=== PATIENT | male | born 1980 | race Caucasian/White ===

== ENCOUNTER 2019-09-02 23:23 | Emergency (ER) | payer OTHER ==
[~2019-09-02] VITALS: Ht 175.3 cm; Wt 72.0 kg
[2019-09-02 23:24] VITALS: BP 165/114
[2019-09-02] MEDS ORDERED: bacitracin 15gm ointment TP ONE (23:50)
[2019-09-02] MEDS ORDERED: TETanus/Pertussis (Acell)/Diphther VAC/PF (Tdap-Adult) 0.5ml syringe IMVAC ONE (23:50)
[2019-09-02] MEDS ORDERED: LIDOcaine 1% W/epiNEPHrine 1:200,000 10ml vial IJ ONE (23:50)
== END 2019-09-03 01:16 ==
LOC: ER 23:23
DX: S01.112A Laceration without foreign body of left eyelid and periocular area, initial encounter (principal); S01.21XA Laceration without foreign body of nose, initial encounter; S01.412A Laceration without foreign body of left cheek and temporomandibular area, initial encounter; S02.2XXA Fracture of nasal bones, initial encounter for closed fracture; S09.90XA Unspecified injury of head, initial encounter; F10.129 Alcohol abuse with intoxication, unspecified; Y04.0XXA Assault by unarmed brawl or fight, initial encounter; Y93.89 Activity, other specified; Y92.89 Other specified places as the place of occurrence of the external cause; Y99.8 Other external cause status; Y90.9 Presence of alcohol in blood, level not specified
CPT/HCPCS: 12013; 70450; 70486; 90471; 90715; 99284

== ENCOUNTER 2025-01-10 17:40 | Emergency (ER) | payer MEDICAID ==
[~2025-01-10] VITALS: Ht 175.3 cm; Wt 79.8 kg
[2025-01-10] MEDS: magnesium oxide 400mg tablet PO ONE (19:44)
[2025-01-10] MEDS ORDERED: METH-797 PO (19:44)
[2025-01-10] MEDS: naproxen 500mg tablet PO ONE (19:44)
[2025-01-10] MEDS: POTASSIUM CHLORIDE 20 MEQ/15 ML oral solution PO ONE (19:45)
[2025-01-10] MEDS: calcium carbonate 500mg chew tablet PO ONE (19:45)
[2025-01-10] MEDS: tizanidine 4mg tablet PO ONE (19:45)
[2025-01-10 19:52] VITALS: BP 148/79; PULSE 65; RESP 16; TEMP 98.1; O2SAT 99
== END 2025-01-10 19:49 | disposition home or self-care (01) ==
LOC: ER 17:41
DX: R25.2 Cramp and spasm (principal)
CPT/HCPCS: 99284

== ENCOUNTER 2025-03-10 23:20 | Emergency (ER) | payer MEDICAID ==
[~2025-03-10] VITALS: Ht 175.3 cm; Wt 79.8 kg
[~2025-03-10 23:20] MED LIST: METH-797 PO
[2025-03-10 23:26] VITALS: TEMP 98.2
--- NOTE | 2025-03-11 01:33 | Physician Documentation ---
History of Present Illness ~ Chief Complaint: Mechanical Fall Stated Complaint: FALL Time Seen by MD: 01:23 HPI Patient presents to the emergency room for evaluation of facial lacerations he sustained after tripping over his weed Irene to go pet his cat. No loss of consciousness no vomiting. He denies neck pain or any other injuries. He does endorse alcohol consumption Tetanus within 5 Years?: No Medication Reconciliation Allergies: Coded Allergies: No Known Allergies (Unverified , 09/02/19) Scheduled PRN Methocarbamol (Methocarbamol), 3 TAB PO Q8H PRN for pain Past Medical History Past Medical History: No Pertinent History Past Surgical History: noncontributory Alcohol Use: Occasionally Lives In: Home Review of Systems ROS All review of systems negative except as per HPI Physical Exam Vital Signs: Temperature: 98.2, Source: Oral, Heart Rate: 106, Respiratory Rate: 16, BP: 151/109, Pulse Oximetry: 98, Weight: 79.750 Oxygen Flow Rate: 0 Physical Exam General: Patient is awake, alert, oriented x4 in no acute distress Head: Normocephalic with abrasions to face Eyes: Conjunctival normal. EOMI. PERRL. ENT: Mucous membranes moist. No sanchez signs, no raccoon eyes, no hemotympanum, no rhinorrhea. Partial-thickness abrasion to bridge of nose with no active bleeding his well as mild abrasion to forehead Neck: Supple, trachea is midline. No cervical midline tenderness Chest: Clear to auscultation bilaterally without rales, rhonchi, or wheezes. There is no accessory muscle use or retractions. Cardiac: RRR without murmurs, gallops, or rubs. Abd: Soft, nondistended, nontender, with normoactive bowel sounds. No guarding, rebound, or rigidity. Extremities: Normal strength. Normal range of motion. No deformities or edema. Progress Results/Orders Results/Orders Vital Signs 03/10/25 23:26 Temp 98.2 Pulse 106 Resp 16 B/P (MAP) 151/109 Pulse Ox 98 O2 Flow Rate 0 Medical Decision Making Findings Patient presented to the emergency room with some lacerations to his face as per HPI. Differentials include but are not limited to nose fracture, intracranial bleed such as epidural, subdural or intraparenchymal bleed, facial fracture. Physical exam is reassuring and he had not feel patient requires any imaging. Wound care provided. Patient is declining tetanus Departure Disposition: HOME / SELF CARE / HOMELESS Impression: Primary Impression: Facial contusion Condition: Stable Discharge Instructions: Fall Prevention in the Home, Adult, [id number] Referrals: NO PRIMARY CARE PROVIDER (PCP) Signature Scribe Signature: No scribe Attestation: The note accurately reflects work and decisions made by me.Bertram Manzo MD 03/11/25 01:33 BERTRAM MANZO MD Mar 11, 2025 01:33
[2025-03-11 02:19] VITALS: BP 154/96; PULSE 71; RESP 15; O2SAT 97
[2025-03-11] MEDS: bacitracin 15gm ointment TP ONE (02:19)
== END 2025-03-11 02:33 | disposition home or self-care (01) ==
LOC: ER 23:20
DX: S01.81XA Laceration without foreign body of other part of head, initial encounter (principal); Z72.89 Other problems related to lifestyle; W18.09XA Striking against other object with subsequent fall, initial encounter; Y93.89 Activity, other specified; Y92.89 Other specified places as the place of occurrence of the external cause; Y99.8 Other external cause status
CPT/HCPCS: 99284; A6258; A6449